=== PATIENT | female | born 1960 | race Caucasian/White ===

== ENCOUNTER 2017-12-03 17:36 | Observation (INO) | payer BC ==
[2017-12-03] MEDS: LIDOCAINE 1% MDV 20ML VIAL SC ×2 (19:30)
[2017-12-03] MEDS ORDERED: PERCOCET 5MG/325MG TAB PO ×2 (21:15)
[2017-12-03] MEDS ORDERED: KETOROLAC 30 MG/ML VIAL (J1885) IV ×2 (21:15)
[2017-12-03 21:26] LABS: BASO # 0.1 10^3/uL (0.0-0.2); BASO % 0.5 % (0.0-1.0); EOS # 0.2 10^3/uL (0.0-0.50); EOS % 1.4 % (0.0-3.0); HEMOGLOBIN 15.1 g/dl (12.0-16.0); IMMATURE GRANULOCYTE % 0.3 % (0-0); LYMPH # 2.7 10^3/uL (1.5-4.5); LYMPH % 21.4 % (24.0-44.0); MEAN CORPUSCULAR HGB CONC 32.8 g/dl (32.0-36.5); MEAN CORPUSCULAR VOLUME 94.5 fl (80.0-96.0); MONO # 0.6 10^3/uL (0.0-0.8); MONO % 4.7 % (0.0-5.0); NEUTROPHILS % 71.7 % (36.0-66.0); PLATELET COUNT, AUTOMATED 260 10^3/uL (150-450); RED BLOOD COUNT 4.87 10^6/uL (4.00-5.40); RED CELL DISTRIBUTION WIDTH 12.5 % (11.5-14.5); WHITE BLOOD COUNT 12.5 10^3/uL (4.0-10.0)
[2017-12-03 21:37] LABS: PROTHROMBIN TIME 12.2 SECONDS (12.4-14.5)
[2017-12-03 21:38] LABS: PARTIAL THROMBOPLASTIN TIME 29.3 SECONDS (26.8-37.9)
[2017-12-03 21:57] LABS: ALBUMIN 3.8 GM/DL (3.2-5.2); ALBUMIN/GLOBULIN RATIO 1.15 (1.00-1.93); ALKALINE PHOSPHATASE 135 U/L (45-117); ALT/SGPT 42 U/L (12-78); ANION GAP 6 MEQ/L (8-16); AST/SGOT 23 U/L (7-37); BILIRUBIN,TOTAL 0.4 MG/DL (0.2-1.0); BLOOD UREA NITROGEN 9 MG/DL (7-18); CALCIUM LEVEL 8.4 MG/DL (8.5-10.1); CARBON DIOXIDE LEVEL 29 MEQ/L (21-32); CHLORIDE LEVEL 108 MEQ/L (98-107); CPK CREATINE PHOSPHOKINASE 121 U/L (26-192); CREATININE FOR GFR 1.06 MG/DL (0.55-1.02); GLOMERULAR FILTRATION RATE 57.3 (>51); GLUCOSE, FASTING 92 MG/DL (70-105); MAGNESIUM LEVEL 2.1 MG/DL (1.8-2.4); MB/CK RELATIVE INDEX 0.82 (< OR =4); SODIUM LEVEL 143 MEQ/L (136-145); TOTAL PROTEIN 7.1 GM/DL (6.4-8.2); TROPONIN I < 0.02 NG/ML (< 0.10)
[2017-12-03] MEDS ORDERED: MORPHINE 2 MG/ML 1ML SYRINGE As Ordered ×2 (22:43)
[2017-12-03] MEDS ORDERED: ONDANSETRON 4MG/2ML VIAL (J2405) As Ordered ×2 (22:43)
[2017-12-03] MEDS ORDERED: KETOROLAC 30 MG/ML VIAL (J1885) As Ordered ×2 (22:43)
[2017-12-03] MEDS: MORPHINE 2 MG/ML 1ML SYRINGE IV ×2 (22:53)
[2017-12-03] MEDS: ONDANSETRON 4MG/2ML VIAL (J2405) IV ×2 (22:54)
[2017-12-04] MEDS: PERCOCET 5MG/325MG TAB PO ×6 (02:04→13:45)
[2017-12-04] MEDS ORDERED: fentaNYL 100 MCG/2 ML INJECTION (J3010) As Ordered ×6 (07:08→09:37)
[2017-12-04] MEDS ORDERED: MIDAZOLAM INJ 2 MG/2 ML VIAL (J2250) As Ordered ×4 (07:08→10:07)
[2017-12-04] MEDS ORDERED: dexameTHASONE 4 MG/ML 1ML VIAL (J1100) As Ordered ×4 (08:08→08:15)
[2017-12-04] MEDS: ceFAZolin 2 GM/D5W 50 ML IV BAG (J0690 PER 500MG) As Ordered ×2 (08:08)
[2017-12-04] MEDS: BUPIVACAINE HCL 0.25% 10 ML VIAL As Ordered ×2 (08:10)
[2017-12-04] MEDS: LIDOCAINE W/EPINEPHRINE 1% 20ML VIAL As Ordered ×2 (08:10)
[2017-12-04] MEDS ORDERED: PROPOFOL 200 MG/20 ML VIAL As Ordered ×2 (08:14)
[2017-12-04] MEDS ORDERED: ROCURONIUM BROMIDE 50 MG/5 ML VIAL As Ordered ×2 (08:14)
[2017-12-04] MEDS ORDERED: PHENYLephrine HCL 500 MCG/5 ML (100MCG/ML) SYRINGE (J2370) As Ordered ×2 (08:15)
[2017-12-04] MEDS ORDERED: ONDANSETRON 4MG/2ML VIAL (J2405) As Ordered ×4 (08:15→09:37)
[2017-12-04] MEDS ORDERED: LIDOCAINE 2% INJ 100 MG/5 ML SDV (FOR ANES.) As Ordered ×2 (08:15)
[2017-12-04] MEDS ORDERED: ePHEDrine SULFATE 25 MG/5 ML(5MG/ML) SYRINGE As Ordered ×2 (08:15)
[2017-12-04] MEDS ORDERED: GLYCOPYRROLATE INJ 0.2 MG/ML 2 ML VIAL As Ordered ×2 (08:57)
[2017-12-04] MEDS ORDERED: NEOSTIGMINE 10 MG/10 ML VIAL (J2710) As Ordered ×2 (08:57)
[2017-12-04] MEDS: INFLUENZA QUADRIVALENT PF VACCINE 0.5ML SYRINGE (90686) IM ×2 (09:00)
[2017-12-04] MEDS: ONDANSETRON 4MG/2ML VIAL (J2405) IV ×4 (09:35→16:52)
[2017-12-04] MEDS ORDERED: PERCOCET 5MG/325MG TAB As Ordered ×2 (09:37)
[2017-12-04] MEDS: fentaNYL 100 MCG/2 ML INJECTION (J3010) IV ×4 (09:42→10:15)
[2017-12-04] MEDS ORDERED: HYDROmorphone HCL 1 MG/ML SYRINGE (J1170) IV ×2 (10:00)
[2017-12-04] MEDS ORDERED: LR 1,000 ML IV ×2 (10:00)
[2017-12-04] MEDS ORDERED: PERCOCET 5MG/325MG TAB PO ×2 (10:15)
[2017-12-04] MEDS: MIDAZOLAM INJ 2 MG/2 ML VIAL (J2250) IV ×2 (10:15)
== END 2017-12-04 18:25 | disposition home or self-care (01) ==
LOC: M PED 12-04 01:40 → M ED INP 12-04 17:25 → M SDC 12-04 01:39 → M PED 12-04 17:13 → M ED INP 12-04 17:13 → M SDC 12-04 01:40 → M PED 12-04 17:25 → M ED 12-04 01:36 → M ED INP 17:37 → M PED 17:39 → M ED 17:36 → M SDC 20:45
DX: S82.842A Displaced bimalleolar fracture of left lower leg, initial encounter for closed fracture (principal); W00.0XXA Fall on same level due to ice and snow, initial encounter; Y92.098 Other place in other non-institutional residence as the place of occurrence of the external cause; J45.909 Unspecified asthma, uncomplicated; E78.5 Hyperlipidemia, unspecified; K21.9 Gastro-esophageal reflux disease without esophagitis; G43.909 Migraine, unspecified, not intractable, without status migrainosus; F32.9 Major depressive disorder, single episode, unspecified; F17.210 Nicotine dependence, cigarettes, uncomplicated; Z79.899 Other long term (current) drug therapy; Z91.040 Latex allergy status
CPT/HCPCS: 27814

== ENCOUNTER 2020-09-07 15:45 | Emergency (ER) | payer BC ==
[~2020-09-07] VITALS: Ht 165.1 cm; Wt 85.7 kg
[~2020-09-07 15:45] MED LIST: /FEXO18TA; ASPI-1 PO; ASPI81TA63; CALC600T10; DARV100T; FEXOFENADINE; FEXOFENADINE HCL; Glucosamine; OMEP40CA97 PO; PERC5TAB12 PO; PRIL40CA; SIMV20TA2; SING10TA31; THERGRAN; TRAZ100T; VENL1TAB35 PO; vitamin c
[2020-09-07 16:28] VITALS: BP 136/60
== END 2020-09-07 16:30 | disposition home or self-care (01) ==
LOC: M ED 15:45
DX: H43.391 Other vitreous opacities, right eye (principal); Z91.040 Latex allergy status

== ENCOUNTER 2020-11-10 20:18 | Inpatient (IN) | payer BC ==
[~2020-11-10] VITALS: Ht 165.1 cm; Wt 91.3 kg
[2020-11-10] MEDS ORDERED: PANTOPRAZOLE 40MG VIAL (C9113 PER 1) IV ONE (22:15)
[2020-11-10] MEDS ORDERED: ONDANSETRON 4MG/2ML VIAL IV ONE (22:15)
[2020-11-10] MEDS ORDERED: KETOROLAC 30 MG/ML 1ML VIAL IV ONE (22:15)
[2020-11-10 22:31] LABS: BASO % 0.3 % (0.0-1.0); EOS # 0.1 10^3/uL (0.0-0.5); EOS % 0.8 % (0.0-3.0); HEMOGLOBIN 15.9 g/dl (12.0-15.5); LYMPH # 1.9 10^3/uL (1.5-5.0); LYMPH % 14.7 % (24.0-44.0); MEAN CORPUSCULAR HEMOGLOBIN 31.1 pg (27.0-33.0); MEAN CORPUSCULAR HGB CONC 33.1 g/dl (32.0-36.5); MEAN CORPUSCULAR VOLUME 93.9 fl (80.0-96.0); MONO # 0.7 10^3/uL (0.0-0.8); MONO % 5.4 % (0.0-5.0); NEUTROPHILS # 10.2 10^3/uL (1.5-8.5); NEUTROPHILS % 78.5 % (36.0-66.0); PLATELET COUNT, AUTOMATED 240 10^3/uL (150-450); RED BLOOD COUNT 5.11 10^6/uL (4.00-5.40)
[2020-11-10] MEDS: NS 1,000 ML IV SCH (22:39)
[2020-11-10 22:56] LABS: INR 0.92; PROTHROMBIN TIME 12.6 SECONDS (12.5-14.3)
[2020-11-10 22:57] LABS: ALBUMIN 3.6 GM/DL (3.2-5.2); BILIRUBIN,DIRECT 0.1 MG/DL (0.0-0.2); BILIRUBIN,TOTAL 0.8 MG/DL (0.2-1.0); CALCIUM LEVEL 9.5 MG/DL (8.5-10.1); CREATININE FOR GFR 1.08 MG/DL (0.55-1.30); GLOMERULAR FILTRATION RATE 55.5 (>51); POTASSIUM SERUM 3.9 MEQ/L (3.5-5.1); TOTAL PROTEIN 7.1 GM/DL (6.4-8.2)
--- NOTE | 2020-11-10 23:32 | REPVR ---
PROCEDURE INFORMATION: Exam: CT Abdomen And Pelvis Without Contrast Exam date and time: 11/10/2020 10:51 PM Age: 60 years old Clinical indication: Abdominal pain; Generalized; Additional info: Pelvic pain TECHNIQUE: Imaging protocol: Computed tomography of the abdomen and pelvis without contrast. Radiation optimization: All CT scans at this facility use at least one of these dose optimization techniques: automated exposure control; mA and/or kV adjustment per patient size (includes targeted exams where dose is matched to clinical indication); or iterative reconstruction. COMPARISON: No relevant prior studies available. FINDINGS: Liver: Normal. No mass. Gallbladder and bile ducts: Previous cholecystectomy. Pancreas: Normal. No ductal dilation. Spleen: Calcified granuloma involving the spleen. Adrenal glands: Normal. No mass. Kidneys and ureters: Moderate left-sided hydroureteronephrosis secondary to 5 mm by 4 mm by 7 mm calculus at the proximal to mid left ureter. Stomach and bowel: Diverticulosis without diverticulitis. Appendix: Normal appendix. Intraperitoneal space: Unremarkable. No free air. No significant fluid collection. Vasculature: Mild vascular calcification. Lymph nodes: Unremarkable. No enlarged lymph nodes. Urinary bladder: Urinary bladder is decompressed. Reproductive: Previous hysterectomy. Bones/joints: There are degenerative changes involving the spine. Soft tissues: Unremarkable. IMPRESSION: Moderate left-sided hydroureteronephrosis secondary to 5 mm by 4 mm by 7 mm calculus at the proximal to mid left ureter. Electronically signed by: Pk Morales On 11/10/2020 23:32:01 PM
[2020-11-10] MEDS ORDERED: CIPROFLOXACIN 400 MG in IV 1 EA IV ONE (23:45)
--- NOTE | 2020-11-11 01:36 | HPEPDOC ---
[facility] Medical History & Physical Date of Admission Nov 11, 2020 Date of Service: Nov 11, 2020 Primary Care Physician: Lobo Bower MD Other Provider Dr. Almodovar, Urology service Attending Physician: THOMAS CHAUDHARI MD History and Physical CHIEF COMPLAINT: Lower abdominal pain HISTORY OF PRESENT ILLNESS: is a pleasant 60yo female with notable PMHx of asthma, HLD, and GERD - - not currently on any medications for any - - who presented to the ED on 11/10/20 with a chief complaint of intermittent severe suprapubic and lower abdominal pain. The pain arose around 11 PM, 3 days ago on this past Monday (11/07) after she worked a 12 hour shift. The pain was 10/10 and had her doubling over into the position, and at times radiated to her back. She had 4-5 episodes of nonbloody emesis on that overnight. From 11/07 into 11/08. She spent all day on Monday, 11/08 in bed and had another 2 episodes of nonbloody emesis. She did get some mild relief by taking Pepto-Bismol but when she woke up yesterday (Monday, 11/09) to prepare to head to work, the severe pain returned and she spent all of Monday in bed. The same sequence occurred this morning (11/10), where she had felt better after staying in bed all day and got up in preparation go to work, but again the sharp pain returned. Due to the pain, she has not had more than a few glasses of water and soup in the past 48 hours. She endorses accompanying chills, but denies any fever, night sweats, dysuria, hematuria, or flank pain. In the emergency department, she was found to have mildly leukocytosis (WBC 13) with increased hematocrit (48 with hemoglobin 15.9), an elevated alkaline ph osphatase at 126. Urinalysis was positive for leuk esterase only. *The most important finding was on abdomen/pelvis CT which showed "moderate left-sided hydroureteronephrosis secondary to a 5 mm x 4 mm x 7 mm calculus at the proximal to mid left ureter." The emergency department called the on-call urologist, Dr. Almodvoar, who was admitted where the case and will be seeing the patient on the morning of 11/11. In preparation for possible surgical intervention, patient was admitted under the care of the hospitalist service and made npo. PAST MEDICAL HISTORY: Asthma (not currently medication). Hyperlipidemia (not currently on medications). GERD (not currently on medications) Smoker Goiter for which she follows with her primary and has had multiple workups that it always been unremarkable PAST SURGICAL HISTORY: Tubal ligation, 1988 Cholecystectomy, 2007. Lab scopic vaginal total hysterectomy with bilateral salpingo-oophorectomy, 2007. Hardware plate implantation, left ankle status post fracture, November 2017 SOCIAL HISTORY: , lives with her and daughter in [place]. Works at [employer] in [place]. She is an active smoker, averaging one pack per day of cigarettes. She smokes cigarettes for 15 years, then quit and did not smoke for 6 years, and has sub sequently now been smoking for 8 years. So, she has smoked for 23 out of the last 29 years, averaging one pack per day. She drinks very infrequently on a social basis, averaging about 5-6 drinks per y ear. Denies any current or former extensive drug use. Did smoke some marijuana while a teenager. FAMILY HISTORY: Father: Living Mother: at the age of 49 due to metastatic cervical cancer She has 2 brothers and 2 sisters. One brother has type 2 diabetes She has 2 sons and 1 daughter. ALLERGIES: Please see below. REVIEW OF SYSTEMS: CONSTITUTIONAL: Reports chills.denies fever, night sweats, or recent unintentional change in weight EYES: Denies recent change in visual acuity, eye pain, blurred vision, double vision ENT: Denies rhinorrhea, ear pain, tinnitus, dysphagia, or odynophagia CARDIOVASCULAR: Denies chest pain, chest pressure, or palpitations RESPIRATORY: Reports chronic dry cough. Denies shortness of breath or pleuritic chest pain GASTROINTESTINAL: Reports lower abdominal and suprapubic pain as detailed in HPI that sometimes radiates to the back. Did have multiple episodes of emesis a couple days ago. Denies constipation, diarrhea, or blood in the stool GENITOURINARY: Reports chronic urinary urgency. Denies dysuria, hematuria, increased urinary frequency, urinary incontinence or flank pain NEUROLOGY: Denies recent loss of consciousness, dizziness, lightheadedness, gait instability, numbness or paresthesias in extremities HEMATOLOGIC: Denies any easy bleeding or bruising LYMPHATIC: Denies any new lumps or bumps anywhere HOME MEDICATIONS: Please see below. PHYSICAL EXAMINATION: VITAL SIGNS: Temperature 97.3, pulse, 98, respiratory rate 16, blood pressure 136/90, pulse oximetry 99% on room air. GENERAL: Pleasant female lying in bed. No acute distress. Alert and oriented 3. PERRLA. EOMI. HEENT: No cephalic, atraumatic. Noninjected, anicteric sclera. No conjunctival pallor. Moist mucous membranes with no pharyngeal erythema or exudate. NECK: Supple. Trachea midline. Palpated nodule in area of right lobe of thyroid. No cervical lymphadenopathy appreciated. RESPIRATORY: Cough elicited on exam at times. Mildly decreased tidal volume with no other adventitious breath sounds appreciated. Symmetric chest expansion. Breathing room air and speaking full senses. CARDIOVASCULAR: Regular rate, regular rhythm. Somewhat distant breath sounds. Normal S1, S2. No murmurs or rubs appreciated ABDOMEN: Soft, nondistended. Moderate tenderness of bilateral lower quadrants and suprapubic area. No CVA tenderness. Normoactive bowel sounds present. No rigidity appreciated. EXTREMITIES: Bilateral lower extremities are free of edema. No signs of clubbing or cyanosis. 2+ radial pulses bilaterally. NEUROLOGICAL: Awake, alert and oriented 3. No focal neurologic deficits appreciated. Non-dysarthric speech. PSYCHIATRIC: Mood and affect appear appropriate LABORATORY DATA: Please see below. IMAGING: CT abdomen/pelvis w/o contrast, 11/10/20 FINDINGS: Liver: Normal. No mass. Gallbladder and bile ducts: Previous cholecystectomy. Pancreas: Normal. No ductal dilation. Spleen: Calcified granuloma involving the spleen. Adrenal glands: Normal. No mass. Kidneys and ureters: Moderate left-sided hydroureteronephrosis secondary to 5 mm by 4 mm by 7 mm calculus at the proximal to mid left ureter. Stomach and bowel: Diverticulosis without diverticulitis. Appendix: Normal appendix. Intraperitoneal space: Unremarkable. No free air. No significant fluid collection. Vasculature: Mild vascular calcification. Lymph nodes: Unremarkable. No enlarged lymph nodes. Urinary bladder: Urinary bladder is decompressed. Reproductive: Previous hysterectomy. Bones/joints: There are degenerative changes involving the spine. Soft tissues: Unremarkable. IMPRESSION: Moderate left-sided hydroureteronephrosis secondary to 5 mm by 4 mm by 7 mm calculus at the proximal to mid left ureter. MICROBIOLOGY: Please see below. ASSESSMENT & PLAN: This is a 60yo female w/ notable h/o asthma, gerd, and hld - - not on any medications for any at this time, who presented to the ED on 11/10/2020 with the chief complaint of intermittent lower abdominal and suprapubic severe 10/10 pain for the last 2.5 days with occasional radiation to her back as well as 5-6 ep isodes of nonbloody emesis. Imaging in the ED showed moderate left-sided hydroureteronephrosis secondary to a stone in the proximal to mid left ureter. ED contacted the on-call urologist, Dr. Almodovar, who will be seeing the patient on 11/11 to assess for moving forward in terms of surgical intervention. #Moderate left-sided hydroureteronephrosis secondary to calculus at the proximal to mid left ureter -Calculus on imaging read as 5 mm x 4 mm x 7 mm -Clinically patient denied fever, hematuria, dysuria, flank pain; WBC was 13 -ED contacted Dr. Almodovar of urology service will be seeing the patient on 11/11 to assess for possible surgical intervention; consultation to the urology service placed, and we thank them for their collaborative efforts -Pt made npo in preparation for possible surgical intervention on 11/11 -Anticoagulation for DVT prophylaxis was deferred in the setting of possible s urgical intervention on 11/11; therefore, tetanus sequentials were ordered -IV fluids ordered -Patient is status post 1 dose of ciprofloxacin in the ED. Patient is afebrile with mild leukocytosis. No dysuria, no hematuria and an unremarkable UA -Analgesia in the form of morphine ordered -Tamsulosin ordered as well #Asthma -This is a reported history of asthma. Patient does not currently take any medications and does not follow with pulmonary or allergy #GERD -Patient is not on any medications for this and says that her reflux at this point is only occasional #Hyperlipidemia -Patient is not in any medications for this at this time and has not been seen by her PCP, any urinary. #Active smoker -Patient was offered nicotine patch while in the hospital and she declined -Patient did report that she is planning to quit upon discharge from this hospitalization #DVT prophylaxis: Teds and sequentials ordered; anticoagulation deferred in the setting of possible surgical intervention on 11/11. Disposition: Pending evaluation by urology service and possible surgical intervention. Vital Signs Vital Signs Date Time Temp Pulse Resp B/P (MAP) Pulse Ox O2 Delivery O2 Flow Rate FiO2 11/11/20 01:08 98.5 79 18 124/75 (91) 99 Room Air Laboratory Data Labs 24H Laboratory Tests 2 11/10/20 22:16: Immature Granulocyte % (Auto) 0.3, Neutrophils (%) (Auto) 78.5H, Lymphocytes (%) (Auto) 14.7L, Monocytes (%) (Auto) 5.4H, Eosinophils (%) (Auto) 0.8, Basophils (%) (Auto) 0.3, Neutrophils # (Auto) 10.2H, Lymphocytes # (Auto) 1.9, Monocytes # (Auto) 0.7, Eosinophils # (Auto) 0.1, Basophils # (Auto) 0.0, Nucleated Red Blood Cells % (auto) 0.0, Prothrombin Time 12.6, Prothromb Time International Ratio 0.92, Urine Color YELLOW, Urine Appearance HAZY, Urine pH 5.0, Urine Speci fic [place] 1.020, Urine Protein NEGATIVE, Urine Glucose (UA) NEGATIVE, Urine Ketones 1+H, Urine Blood 2+H, Urine Nitrite NEGATIVE, Urine Bilirubin NEGATIVE, Urine Urobilinogen 4.0H, Urine Leukocyte Esterase 1+H, Urine WBC (Auto) 23H, Urine RBC (Auto) 26H, Urine Hyaline Casts (Auto) 0, Urine Bacteria (Auto) NEGATIVE, Urine Squamous Epithelial Cells 0, Urine Calcium Oxalate Cryst (Auto) SMALL, Urine Mucus (Auto) SMALL, Urine Sperm (Auto) , Anion Gap 6L, Glomerular Filtration Rate 55.5, Calcium Level 9.5, Total Bilirubin 0.8, Direct Bilirubin 0.1, Aspartate Amino Transf (AST/SGOT) 17, Alanine Aminotransferase (ALT/SGPT) 27, Alkaline Phosphatase 126H, Total Protein 7.1, Albumin 3.6, Albumin/Globulin Ratio 1.0L, Lipase 116 11/11/20 00:51: CBC/BMP Laboratory Tests 11/10/20 22:16 Microbiology Microbiology 11/10/20 Urine Culture, Received Pending Home Medications Scheduled Cefdinir (Cefdinir) 300 Mg Capsule, 1 CAP PO BID Allergies Coded Allergies: latex (Verified Allergy, Unknown, 09/07/20) A-FIB/CHADSVASC A-FIB History Current/History of A-Fib/PAF?: No Current PO Anticoag Therapy: No GME ATTESTATION GME ATTESTATION My faculty preceptor for this patient encounter was physically present during the encounter and was fully available. All aspects of the patient interview, examination, medical decision making process, and medical care plan development were reviewed and approved by the faculty preceptor. The faculty preceptor is aware and concurs with the plan as stated in the body of this note and will attest to such by his/her cosignature. ATTENDING NOTE TIME OF SERVICE 405 AM Ms. Chowdhury is a 60 yr old w a hx of Asthma, DLP, insomnia, and no hx of nephrolithiasis who presented w c/o lower abdominal pain and was found to have left sided hydroureteronephrosis 2/2 urolithiasis. Plan: NPO/ IVF/ Flomax / morphine for pain / f/u w Rest per 's H&P NATALIE CEJA D.O. Nov 11, 2020 01:36 THOMAS CHAUDHARI MD Nov 11, 2020 04:42
[2020-11-11] MEDS ORDERED: NS 1,000 ML IV SCH (01:49)
[2020-11-11 01:55] LABS: RSV AMPLIFICATION NEGATIVE (NEGATIVE)
[2020-11-11 02:54] LABS: PARTIAL THROMBOPLASTIN TIME 29.2 SECONDS (24.2-38.5)
[2020-11-11] MEDS ORDERED: MORPHINE 2 MG/ML 1ML VIAL (J2270) IV PRN (04:45)
[2020-11-11 05:35] VITALS: BP 124/59
[2020-11-11] MEDS: TAMSULOSIN 0.4 MG CAP PO SCH (09:01)
[2020-11-11] MEDS: NS 1,000 ML IV SCH ×2 (09:01→09:08)
[2020-11-11] MEDS: cefTRIAXone SOD 1 GM in D5W MINI-BAG PLUS 50 ML IV SCH (09:01)
[2020-11-11 09:24] LABS: HEMATOCRIT 45.4 % (36.0-47.0); HEMOGLOBIN 14.7 g/dl (12.0-15.5); MEAN CORPUSCULAR HGB CONC 32.4 g/dl (32.0-36.5); MEAN CORPUSCULAR VOLUME 95.8 fl (80.0-96.0); PLATELET COUNT, AUTOMATED 227 10^3/uL (150-450); RED BLOOD COUNT 4.74 10^6/uL (4.00-5.40)
[2020-11-11 09:35] LABS: ALBUMIN 3.3 GM/DL (3.2-5.2); BILIRUBIN,TOTAL 0.9 MG/DL (0.2-1.0); CALCIUM LEVEL 8.9 MG/DL (8.5-10.1); CREATININE FOR GFR 1.16 MG/DL (0.55-1.30); GLOMERULAR FILTRATION RATE 51.1 (>51); POTASSIUM SERUM 3.8 MEQ/L (3.5-5.1); TOTAL PROTEIN 6.2 GM/DL (6.4-8.2)
--- NOTE | 2020-11-11 09:37 | SMCUROLCON ---
Urology Consultation General Date of Consultation 11/11/20 Reason For Consultation This patient is seen for Hydroureteronephrosis. History of Present Illness The patient is a 60-year-old female who presented to the [facility] emergency room for 4 day history of lower abdominal and left flank pain. While in the emergency room, she was diagnosed with a mid left ureteral calculus with mild hydronephrosis. She was admitted and urology consult was called. She denies any prior history of similar pain and has no past history of renal calculi. Past Medical History Medical History Asthma Hyperlipidemia GERD Goiter Surgical Hstory Tubal ligation Cholecystectomy Laparoscopic hysterectomy Plate inserted left ankle Social History * Smoker: current smoker Alcohol: occationally Medications Current Medications Current Medications Medications (Trade) Dose Ordered Sig/Elin Route PRN Reason Start Time Stop Time Status Last Admin Dose Admin Ceftriaxone Sodium 1 gm/ Dextrose 50 ml @ 100 mls/hr Q24H IV 11/11/20 09:00 11/11/20 09:01 Home Med (Med Rec Complete!) ASDIRECTED XX 11/11/20 00:30 11/11/20 00:30 DC Ketorolac Tromethamine (ToRADol) 15 mg Q6H PRN IV PAIN LEVEL 5-10 11/11/20 08:15 11/16/20 08:14 Morphine Sulfate (Morphine Sulfate Inj) 1 mg Q2H PRN IV MODERATE PAIN (PS 5-7) 11/11/20 04:45 11/11/20 08:08 DC 11/11/20 06:20 Morphine Sulfate (Morphine Sulfate Inj) 2 mg Q2H PRN IV PAIN LEVEL 8-10 11/11/20 08:15 Ondansetron HCl (ZOFRAN INJection) 4 mg Q6HP PRN IV NAUSEA OR VOMITING 11/11/20 08:15 Sodium Chloride 1,000 ml @ 100 mls/hr Q10H IV 11/10/20 22:04 11/11/20 09:08 Sodium Chloride 1,000 ml @ 125 mls/hr Q8H IV 11/11/20 01:49 11/11/20 02:02 DC Tamsulosin HCl (Flomax) 0.4 mg DAILY PO 11/11/20 09:00 11/11/20 09:01 Allergies Allergies: Coded Allergies: latex (Verified Allergy, Unknown, 09/07/20) Review of Systems General: Reports: Normal Appetite; Denies: Fatigue, Malaise Constitutional: Denies: Fever, Chills, Sweats, Weakness, Malaise Eyes: Denies: Pain, Vision change ENT: Denies: Head Aches, Sore Throat, Epistaxis Skin: Denies: Rash, Lesions, Breakdown, Nail Changes Pulmonary: Denies: Dyspnea, Cough Cardiovascular: Denies Chest Pain, Denies Palpitations Gastrointestinal: Denies: Nausea, Vomiting, Abdominal Pain Genitourinary: Denies: Dysuria, Frequency, Incontinence, Hematuria Hematologic: Denies: Bruising, Bleeding Excessively Endocrine: Denies: Polydipsia, Polyphagia, Polyuria Musculoskeletal: Denies: Neck Pain, Back Pain Neurological: Denies: Weakness, Numbness, Incoordination, Change in Speech Psych: Reports: Mood Normal; Denies: Anxiety, Depression Physical Examination General Exam: Alert, No Acute Distress EYE EXAM: PERRLA, Conjunctiva & lids normal, EOMI; No: Sclera icteric ENT EXAM: Atraumatic, Mucous membr. moist/pink, Pharynx Normal Neck Exam: Supple; No: JVD, thyromegaly Chest Exam: Clear to auscultation, Normal air movement; No: Rales, Rhonchi, Wheezing, Diminished, Other Heart Exam: Rate Normal, Regular Rhythm, Normal S1, Normal S2; No: Murmurs, Rubs Abdomen Exam: Normal Bowel Sounds, Soft; No: Tenderness, Hepatospenomegaly Neuro Exam: Normal Gait, Normal Speech, Cranial Nerves 3-12 NL, Reflexes 2+ Psych Exam: Mental status NL, Mood NL, Oriented x 3 Vital Signs/I&O Vital Signs Date Time Temp Pulse Resp B/P (MAP) Pulse Ox O2 Delivery O2 Flow Rate FiO2 11/11/20 06:49 18 11/11/20 05:35 98.9 85 124/59 (80) 97 Room Air I&O- Last 24 Hours up to 6 AM 11/11/20 06:00 Intake Total 800 ml Output Total 100 ml Balance 700 ml Laboratory Data 24H Labs Laboratory Tests 2 11/10/20 22:16: Immature Granulocyte % (Auto) 0.3, Neutrophils (%) (Auto) 78.5H, Lymphocytes (%) (Auto) 14.7L, Monocytes (%) (Auto) 5.4H, Eosinophils (%) (Auto) 0.8, Basophils (%) (Auto) 0.3, Neutrophils # (Auto) 10.2H, Lymphocytes # (Auto) 1.9, Monocytes # (Auto) 0.7, Eosinophils # (Auto) 0.1, Basophils # (Auto) 0.0, Nucleated Red Blood Cells % (auto) 0.0, Prothrombin Time 12.6, Prothromb Time International Ratio 0.92, Activated Partial Thromboplast Time 29.2, Urine Color YELLOW, Urine Appearance HAZY, Urine pH 5.0, Urine Specific [place] 1.020, Urine Protein NEGATIVE, Urine Glucose (UA) NEGATIVE, Urine Ketones 1+H, Urine Blood 2+H, Urine Nitrite NEGATIVE, Urine Bilirubin NEGATIVE, Urine Urobilinogen 4.0H, Urine Leukocyte Esterase 1+H, Urine WBC (Auto) 23H, Urine RBC (Auto) 26H, Urine Hy clyde Casts (Auto) 0, Urine Bacteria (Auto) NEGATIVE, Urine Squamous Epithelial Cells 0, Urine Calcium Oxalate Cryst (Auto) SMALL, Urine Mucus (Auto) SMALL, Urine Sperm (Auto) , Anion Gap 6L, Glomerular Filtration Rate 55.5, Calcium Level 9.5, Total Bilirubin 0.8, Direct Bilirubin 0.1, Aspartate Amino Transf (AST/SGOT) 17, Alanine Aminotransferase (ALT/SGPT) 27, Alkaline Phosphatase 126H, Total Protein 7.1, Albumin 3.6, Albumin/Globulin Ratio 1.0L, Lipase 116 11/11/20 00:51: Coronavirus (COVID-19)(PCR) NEGATIVE, Influenza Type A (RT-PCR) NEGATIVE, Influenza Type B (RT-PCR) NEGATIVE, Respiratory Syncytial Virus (PCR) NEGATIVE 11/11/20 08:59: Nucleated Red Blood Cells % (auto) 0.0 CBC/BMP Laboratory Tests 11/10/20 22:16 11/11/20 08:59 Microbiology Microbiology 11/10/20 Urine Culture, Received Pending Assessment After reviewing the CT scan and report the patient has a mid left ureteral calculus. Plan Treatment options for the left ureteral calculus were discussed including continued hydration and pain control for spontaneous passage, stent insertion, ESWL or ureteroscopic laser lithotripsy. Right now, the patient wishes to try and pass the stone. She'll be hydrated and reviewed again this evening to see if she would like a stent inserted Time Spent on Consult: Time Spent / Consult (Minutes): 55 KB GRIJALVA MD Nov 11, 2020 09:32
[2020-11-11] MEDS: ONDANSETRON 4MG/2ML VIAL IV PRN (11:20)
[2020-11-11] MEDS: MORPHINE 2 MG/ML 1ML VIAL (J2270) IV PRN ×3 (11:21→22:17)
--- NOTE | 2020-11-11 13:32 | IPNPDOC ---
Text Note Date of Service The patient was seen on 11/11/20. NOTE Subjective: Had initially low pelvic pain and then it moved to left lower ab domen. Now says pain is controlled after pain meds. Has not passed the stone yet. PHYSICAL EXAMINATION: VITAL SIGNS: As below GENERAL: Pleasant female lying in bed. No acute distress. Alert and oriented 3. HEENT: No cephalic, atraumatic. Noninjected, anicteric sclera. No conjunctival p allor. Moist mucous membranes with no pharyngeal erythema or exudate. NECK: Supple. Trachea midline. No cervical lymphadenopathy appreciated. RESPIRATORY: Bilateral vesicular breath sounds, no ronchi or wheezing. CARDIOVASCULAR: Regular rate, regular rhythm. Normal S1, S2. No murmurs or rubs appreciated ABDOMEN: Soft, nondistended. tenderness in the suprapubic area. No CVA tenderness. Normoactive bowel sounds present. No rigidity appreciated. EXTREMITIES: Bilateral lower extremities are free of edema. No signs of clubbing or cyanosis. 2+ radial pulses bilaterally. NEUROLOGICAL: Awake, alert and oriented 3. No focal neurologic deficits appreciated. Non-dysarthric speech. PSYCHIATRIC: Mood and affect appear appropriate LABORATORY DATA: Please see below. IMAGING: CT abdomen/pelvis w/o contrast, 11/10/20 Moderate left-sided hydroureteronephrosis secondary to 5 mm by 4 mm by 7 mm calculus at the proximal to mid left ureter. ASSESSMENT & PLAN: This is a 60yo female w/ notable h/o asthma, gerd, and hld - - not on any medications for any at this time, who presented to the ED on 11/10/2020 with the chief complaint of intermittent lower abdominal and suprapubic severe 10/10 pain for the last 2.5 days with occasional radiation to her back as well as 5-6 episodes of nonbloody emesis. Imaging in the ED showed moderate left-sided hydroureteronephrosis secondary to a stone in the proximal to mid left ureter. Obstructive uropathy /Left Ureteric stone with Moderate left-sided hydroureteronephrosis secondary to calculus at the proximal to mid left ureter Calculus on imaging read as 5 mm x 4 mm x 7 mm continue IVF, flomax, pain control with toradol, zofran prn. Urology following. UA with few WBCs may go for procedure so will give ceftriaxone. Urine culture sent. Asthma, HLD, GERD not on any meds VS,Fishbone, I+O VS, Fishbone, I+O Laboratory Tests 11/10/20 22:16 11/11/20 08:59 Vital Signs Date Time Temp Pulse Resp B/P (MAP) Pulse Ox O2 Delivery O2 Flow Rate FiO2 11/11/20 11:31 18 Room Air 11/11/20 05:35 98.9 85 124/59 (80) 97 I&O- Last 24 Hours up to 6 AM 11/11/20 06:00 Intake Total 800 ml Output Total 100 ml Balance 700 ml BRITNEY MONTANO MD Nov 11, 2020 13:32
[2020-11-11 14:00] VITALS: BP 132/72
[2020-11-11] MEDS: KETOROLAC 30 MG/ML 1ML VIAL IV PRN (17:31)
--- NOTE | 2020-11-11 18:49 | IPNPDOC ---
Subjective Review oF Systems Chief Complaint The patient is a 60-year-old female admitted with a reason for visit of Hydroureteronephrosis. Events since Last Encounter Patient continues to have occasional left flank pain requiring narcotic medications. She has not passed any stone fragments Constitutional: Denies: Fever, Chills, Sweats, Weakness, Malaise ENT: Denies: Head Aches, Sore Throat, Epistaxis Genitourinary: Denies: Dysuria, Frequency, Incontinence, Hematuria Musculoskeletal: Denies: Neck Pain, Back Pain Objective Physical Examination General Exam: Other Other physical findings Patient continues to have some left flank discomfort on palpation Chin. Vital Signs/I&O Vital Signs Date Time Temp Pulse Resp B/P (MAP) Pulse Ox O2 Delivery O2 Flow Rate FiO2 11/11/20 17:30 18 Room Air 11/11/20 14:00 98.7 95 132/72 (92) 96 I&O- Last 24 Hours up to 6 AM 11/11/20 06:00 Intake Total 800 ml Output Total 100 ml Balance 700 ml Laboratory Data Labs 24H Laboratory Tests 2 11/10/20 22:16: Immature Granulocyte % (Auto) 0.3, Neutrophils (%) (Auto) 78.5H, Lymphocytes (%) (Auto) 14.7L, Monocytes (%) (Auto) 5.4H, Eosinophils (%) (Auto) 0.8, Basophils (%) (Auto) 0.3, Neutrophils # (Auto) 10.2H, Lymphocytes # (Auto) 1.9, Monocytes # (Auto) 0.7, Eosinophils # (Auto) 0.1, Basophils # (Auto) 0.0, Nucleated Red Bl ood Cells % (auto) 0.0, Prothrombin Time 12.6, Prothromb Time International Ratio 0.92, Activated Partial Thromboplast Time 29.2, Urine Color YELLOW, Urine Appearance HAZY, Urine pH 5.0, Urine Specific [place] 1.020, Urine Protein NEGATIVE, Urine Glucose (UA) NEGATIVE, Urine Ketones 1+H, Urine Blood 2+H, Urine Nitrite NEGATIVE, Urine Bilirubin NEGATIVE, Urine Urobilinogen 4.0H, Urine Leukocyte Esterase 1+H, Urine WBC (Auto) 23H, Urine RBC (Auto) 26H, Urine Hyaline Casts (Auto) 0, Urine Bacteria (Auto) NEGATIVE, Urine Squamous Epithelial Cells 0, Urine Calcium Oxalate Cryst (Auto) SMALL, Urine Mucus (Auto) SMALL, Urine Sperm (Auto) , Anion Gap 6L, Glomerular Filtration Rate 55.5, Calcium Level 9.5, Total Bilirubin 0.8, Direct Bilirubin 0.1, Aspartate Amino Transf (AST/SGOT) 17, Alanine Aminotransferase (ALT/SGPT) 27, Alkaline Phosphatase 126H, Total Protein 7.1, Albumin 3.6, Albumin/Globulin Ratio 1.0L, Lipase 116 11/11/20 00:51: Coronavirus (COVID-19)(PCR) NEGATIVE, Influenza Type A (RT-PCR) NEGATIVE, Influenza Type B (RT-PCR) NEGATIVE, Respiratory Syncytial Virus (PCR) NEGATIVE 11/11/20 08:59: Nucleated Red Blood Cells % (auto) 0.0, Anion Gap 6L, Glomerular Filtration Rate 51.1, Calcium Level 8.9, Total Bilirubin 0.9, Aspartate Amino Transf (AST/SGOT) 16, Alanine Aminotransferase (ALT/SGPT) 25, Alkaline Phosphatase 114, Total Protein 6.2L, Albumin 3.3, Albumin/Globulin Ratio 1.1L CBC/BMP Laboratory Tests 11/10/20 22:16 11/11/20 08:59 Microbiology Microbiology 11/10/20 Urine Culture, Received Pending Assessment/Plan Date Seen The patient was seen on 11/11/20. Patient Summary Patient will continue to hydrate. Again, treatment options were discussed and she would like to have a ureteral stent placed tomorrow afternoon if she has not passed the stone by then. She will therefore be allowed to eat and drink this evening but again be placed back on nothing by mouth at midnight Plan/VTE VTE Prophylaxis Ordered?: No VTE Exclusion Mechanical Proph: Low Risk for VTE KB GRIJALVA MD Nov 11, 2020 18:45
[2020-11-11 22:00] VITALS: BP 111/52
[2020-11-12] MEDS: KETOROLAC 30 MG/ML 1ML VIAL IV PRN (01:42)
[2020-11-12] MEDS: MORPHINE 2 MG/ML 1ML VIAL (J2270) IV PRN (05:59)
[2020-11-12 06:00] VITALS: BP 141/77
[2020-11-12 07:08] LABS: BASO % 0.5 % (0.0-1.0); EOS # 0.2 10^3/uL (0.0-0.5); EOS % 3.3 % (0.0-3.0); HEMATOCRIT 39.5 % (36.0-47.0); HEMOGLOBIN 12.8 g/dl (12.0-15.5); LYMPH # 2.4 10^3/uL (1.5-5.0); LYMPH % 39.5 % (24.0-44.0); MEAN CORPUSCULAR HEMOGLOBIN 31.3 pg (27.0-33.0); MEAN CORPUSCULAR HGB CONC 32.4 g/dl (32.0-36.5); MEAN CORPUSCULAR VOLUME 96.6 fl (80.0-96.0); MONO # 0.5 10^3/uL (0.0-0.8); MONO % 8.9 % (0.0-5.0); NEUTROPHILS # 2.9 10^3/uL (1.5-8.5); NEUTROPHILS % 47.6 % (36.0-66.0); PLATELET COUNT, AUTOMATED 184 10^3/uL (150-450); RED BLOOD COUNT 4.09 10^6/uL (4.00-5.40)
[2020-11-12 07:26] LABS: BLOOD UREA NITROGEN 13 MG/DL (7-18); CALCIUM LEVEL 8.1 MG/DL (8.5-10.1); CARBON DIOXIDE LEVEL 25 MEQ/L (21-32); CHLORIDE LEVEL 111 MEQ/L (98-107); GLOMERULAR FILTRATION RATE > 60.0 (>51); GLUCOSE, FASTING 94 MG/DL (70-100); POTASSIUM SERUM 4.1 MEQ/L (3.5-5.1); SODIUM LEVEL 141 MEQ/L (136-145)
[2020-11-12] MEDS: ONDANSETRON 4MG/2ML VIAL IV PRN (08:53)
[2020-11-12] MEDS: cefTRIAXone SOD 1 GM in D5W MINI-BAG PLUS 50 ML IV SCH (08:53)
[2020-11-12] MEDS: TAMSULOSIN 0.4 MG CAP PO SCH (08:53)
[2020-11-12] MEDS ORDERED: CEFD300CAP PO (10:26)
[2020-11-12] MEDS ORDERED: CONRAY-60 60% 50ML VIAL (Q9961) As Ordered ONE (13:24)
[2020-11-12] MEDS ORDERED: MIDAZOLAM INJ 2MG/2ML VIAL (J2250 PER 1MG) As Ordered ONE (14:00)
[2020-11-12] MEDS ORDERED: fentaNYL 100 MCG/2 ML INJECTION (J3010) As Ordered ONE (14:00)
[2020-11-12] MEDS ORDERED: propofoL 200 MG/20 ML VIAL As Ordered ONE (14:00)
--- NOTE | 2020-11-12 14:29 | REP ---
INDICATION: KIDNEY STONE RETRIEVAL. COMPARISON: None. TECHNIQUE: Intraoperative fluoroscopic imaging FINDINGS: Single view demonstrates mild hydroureteronephrosis with possible filling defect in the proximal/mid ureter followed by relatively normal contour and caliber of the mid to distal ureter. Total fluoroscopic time 19 seconds. IMPRESSION: Status post left retrograde pyelogram demonstrating mild hydronephrosis and proximal hydroureter. <Electronically signed by Willi Morrow > 11/12/20 [id number]
--- NOTE | 2020-11-12 14:32 | ROOPDOC ---
[facility] Report Of Operation Report of Operation DATE OF PROCEDURE: 11/12/20 PREPROCEDURE DIAGNOSES: Left ureteral calculus POSTPROCEDURE DIAGNOSES: Left ureteral calculus PROCEDURE: Cystoscopy, left retrograde pyelogram and ureteral stent insertion SURGEON: Hector Almodovar MD [employer]IN[employer]NANCE MANAGER: None ANESTHESIA: Mac ESTIMATED BLOOD LOSS: Approximately 0 mL. COMPLICATIONS: None REMARKS: Ureteral stone remained in the mid ureter PROCEDURE NOTE: Patient was brought to the operating room for stent insertion for an obstructing midureteral calculus. She has failed to pass stone in more than 24 hours. DESCRIPTION OF PROCEDURE: The patient was placed on table in supine position, Mac anesthesia was given, patient was then placed in lithotomy position, prepped with Betadine paint and draped in an aseptic manner. Timeout was then performed. A 22 American cystoscope was then inserted with the meatus and advanced under direct vision of a 30 lens of the bladder. P appeared normal. The left ureteral orifice was then catheterized with a 5 American open-ended Pollack catheter and retrograde injection of 10 mL of Conray showed the patient had an obstructing midureteral calculus. A wire guide was then passed around the stone up to the renal pelvis and a 5 American double-J stent was then passed over this. Both ends curled well when the wire was removed. The bladder was drained, cystoscope was removed and the patient was awakened and sent to recovery room stable condition having tolerated the procedure well. She will have a ureteroscopic laser lithotripsy or as well procedure about 2 weeks. Fluoroscopy was used throughout the case and interpreted throughout the case to evaluate for stone position and to place the double-J stent. HECTOR ALMODOVAR MD Nov 12, 2020 14:31
[2020-11-12] MEDS ORDERED: LR 1,000 ML IV SCH ×2 (15:00→15:15)
[2020-11-12] MEDS ORDERED: HYDROMORPHONE HCL 0.5 MG/ 0.5 ML SYRINGE (J1170 PER 1) IV PRN (15:15)
[2020-11-12] MEDS ORDERED: ONDANSETRON 4MG/2ML VIAL IV PRN (15:15)
[2020-11-12] MEDS ORDERED: oxyCODONE 5MG TAB PO PRN (15:15)
[2020-11-12] MEDS ORDERED: fentaNYL 100 MCG/2 ML INJECTION (J3010) IV PRN (15:15)
[2020-11-12 15:33] VITALS: BP 166/77
[2020-11-12 16:00] VITALS: BP 158/74
[2020-11-12 16:30] VITALS: BP 157/76
[2020-11-12 17:38] VITALS: BP 161/77
[2020-11-12 18:00] VITALS: BP 160/69
--- NOTE | 2020-11-16 10:22 | DS.PDOC ---
Discharge Summary General Date of Admission Nov 11, 2020 at 00:08 Date of Discharge 11/12/20 Discharge Summary PROCEDURES PERFORMED DURING STAY: Cystoscopy, left retrograde pyelogram and ureteral stent insertion DISCHARGE DIAGNOSES: Left Ureteral stone Moderate left-sided hydroureteronephrosis SECONDARY DIAGNOSIS: Asthma, GERD, HLD COMPLICATIONS/CHIEF COMPLAINT: Hydroureteronephrosis. HOSPITAL COURSE: This is a 60yo female w/ notable h/o asthma, gerd, and hld - - not on any medications for any at this time, who presented to the ED on with the chief complaint of intermittent lower abdominal and suprapubic severe 10/10 pain for the last 2.5 days with occasional radiation to her back as well as 5-6 episodes of nonbloody emesis. Imaging in the ED showed moderate left-sided hydroureteronephrosis secondary to a stone in the proximal to mid left ureter. Obstructive uropathy /Left Ureteric stone with Moderate left-sided hydroureteronephrosis secondary to calculus at the proximal to mid left ureter Calculus on imaging read as 5 mm x 4 mm x 7 mm s/p ureteral stent placement She will need a ureteroscopic laser lithotripsy or as well procedure in about 2 weeks. Asthma, HLD, GERD not on any meds DISCHARGE MEDICATIONS: Please see below. ALLERGIES: Please see below. PHYSICAL EXAMINATION ON DISCHARGE: VITAL SIGNS: Please see below. GENERAL: Pleasant female lying in bed. No acute distress. Alert and oriented 3. HEENT: No cephalic, atraumatic. Noninjected, anicteric sclera. No conjunctival pallor. Moist mucous membranes with no pharyngeal erythema or exudate. NECK: Supple. Trachea midline. No cervical lymphadenopathy appreciated. RESPIRATORY: Bilateral vesicular breath sounds, no ronchi or wheezing. CARDIOVASCULAR: Regular rate, regular rhythm. Normal S1, S2. No murmurs or rubs appreciated ABDOMEN: Soft, nondistended. tenderness in the suprapubic area. No CVA tenderness. Normoactive bowel sounds present. No rigidity appreciated. EXTREMITIES: Bilateral lower extremities are free of edema. No signs of clubbing or cyanosis. 2+ radial pulses bilaterally. NEUROLOGICAL: Awake, alert and oriented 3. No focal neurologic deficits appreciated. Non-dysarthric speech. PSYCHIATRIC: Mood and affect appear appropriate LABORATORY DATA: Please see below. IMAGING: CT abdomen/pelvis w/o contrast, 11/10/20 Moderate left-sided hydroureteronephrosis secondary to 5 mm by 4 mm by 7 mm calculus at the proximal to mid left ureter. ACTIVITY: [As tolerated]. DIET: Regular DISPOSITION: 01 Home, Self-Care. DISCHARGE INSTRUCTIONS: Follow up Urology in 2 weeks PMD in 1 week DISCHARGE CONDITION: [Stable]. TIME SPENT ON DISCHARGE: 35 minutes. Vital Signs/I&Os Vital Signs Date Time Temp Pulse Resp B/P (MAP) Pulse Ox O2 Delivery O2 Flow Rate FiO2 11/12/20 18:00 97.7 59 18 160/69 (99) 99 Room Air Microbiology Microbiology 11/10/20 Urine Culture - Final, Complete Discharge Medications Scheduled Cefdinir (Cefdinir) 300 Mg Capsule, 1 CAP PO BID Allergies Coded Allergies: latex (Verified Allergy, Unknown, 09/07/20) BRITNEY MONTANO MD Nov 16, 2020 10:13
== END 2020-11-12 18:55 | disposition home or self-care (01) | DRG 465 ==
LOC: M ED 20:18 → M ED INP 11-11 00:08 → M MS5PR 11-11 05:30
PROVIDERS: ADMIT Internal Medicine; ATTEND Internal Medicine Nephrology
PROC: 0T778DZ Dilation of Left Ureter with Intraluminal Device, Via Natural or Artificial Opening Endoscopic (ICD-10-PCS; principal; 2020-11-12 12:00)
DX: N13.1 Hydronephrosis with ureteral stricture, not elsewhere classified (principal); E78.5 Hyperlipidemia, unspecified; J45.909 Unspecified asthma, uncomplicated; K21.9 Gastro-esophageal reflux disease without esophagitis; F17.210 Nicotine dependence, cigarettes, uncomplicated; Z90.49 Acquired absence of other specified parts of digestive tract; Z91.040 Latex allergy status; Z20.828 Contact with and (suspected) exposure to other viral communicable diseases

== ENCOUNTER → 2020-12-07 | Outpatient (CLI) | payer BC ==
[~2020-12-07] MED LIST changes: +CEFD300CAP PO
[2020-12-07 15:40] LABS: BASO % 0.4 % (0.0-1.0); EOS # 0.2 10^3/uL (0.0-0.5); EOS % 2.8 % (0.0-3.0); HEMATOCRIT 44.9 % (36.0-47.0); HEMOGLOBIN 14.4 g/dl (12.0-15.5); LYMPH # 2.1 10^3/uL (1.5-5.0); LYMPH % 28.8 % (24.0-44.0); MEAN CORPUSCULAR HEMOGLOBIN 31.5 pg (27.0-33.0); MEAN CORPUSCULAR HGB CONC 32.1 g/dl (32.0-36.5); MEAN CORPUSCULAR VOLUME 98.2 fl (80.0-96.0); MONO # 0.4 10^3/uL (0.0-0.8); MONO % 5.5 % (0.0-5.0); NEUTROPHILS # 4.6 10^3/uL (1.5-8.5); NEUTROPHILS % 62.1 % (36.0-66.0); PLATELET COUNT, AUTOMATED 262 10^3/uL (150-450); RED BLOOD COUNT 4.57 10^6/uL (4.00-5.40); WHITE BLOOD COUNT 7.4 10^3/uL (4.0-10.0)
[2020-12-07 16:02] LABS: CALCIUM LEVEL 9.2 MG/DL (8.5-10.1); CREATININE FOR GFR 1.03 MG/DL (0.55-1.30); GLOMERULAR FILTRATION RATE 58.6 (>51); POTASSIUM SERUM 3.7 MEQ/L (3.5-5.1)
--- NOTE | 2020-12-08 10:08 | REP ---
INDICATION: CALCULUS OF URETER, LABS 1ST THEN XR COMPARISON: CT dated 11/10/2020 TECHNIQUE: Supine view of the abdomen and pelvis. FINDINGS: Left ureteral stent in satisfactory position. Small cluster of calcifications adjacent to the proximal/mid stent at the L3-4 disc space level noted. No further obvious urinary tract calcifications are identified. Bowel gas pattern is nonspecific. Findings suggesting prior cholecystectomy. Skeletal structures demonstrate stable degenerative changes. IMPRESSION: Left ureteral calculi suspected. <Electronically signed by Willi Morrow > 12/08/20 [id number]
== END ==
LOC: M LAB 14:20
PROVIDERS: ATTEND Urology
DX: N20.1 Calculus of ureter (principal)

== ENCOUNTER → 2020-12-09 | Outpatient (CLI) | payer BC | LOC: M LABSMTC 12:05 | PROVIDERS: ATTEND Anesthesiology | DX: Z01.812 Encounter for preprocedural laboratory examination (principal); Z20.828 Contact with and (suspected) exposure to other viral communicable diseases ==

== ENCOUNTER → 2020-12-10 | Outpatient (REF) | payer BC | LOC: M SMT 13:25 | PROVIDERS: ATTEND Nurse Practitioner Family | DX: N20.1 Calculus of ureter (principal) ==

== ENCOUNTER 2020-12-14 09:49 | Day surgery (SDC) | payer BC ==
[~2020-12-14] VITALS: Ht 167.6 cm; Wt 83.9 kg
[~2020-12-14 09:49] MED LIST changes: +LIDOCAINE 2% 100MG/5ML SDV (FOR ANES.) As Ordered ONE; +LR 1,000 ML IV ONE; +MIDAZOLAM INJ 2MG/2ML VIAL (J2250 PER 1MG) As Ordered ONE; +ceFAZolin SOD 2 GM in IV 1 EA IV ONE; +fentaNYL 100 MCG/2 ML INJECTION (J3010) As Ordered ONE; +propofoL 200 MG/20 ML VIAL As Ordered ONE
[2020-12-14] MEDS ORDERED: CONRAY-60 60% 50ML VIAL (Q9961) As Ordered ONE (11:25)
[2020-12-14] MEDS ORDERED: ONDANSETRON 4MG/2ML VIAL As Ordered ONE (12:25)
[2020-12-14] MEDS ORDERED: KETOROLAC 60MG 2ML VIAL As Ordered ONE (12:25)
[2020-12-14] MEDS ORDERED: dexameTHASONE 4 MG/ML 1ML VIAL (J1100 PER 1MG) As Ordered ONE (12:25)
--- NOTE | 2020-12-14 12:59 | REP ---
INDICATION: LEFT STENT PLACEMENT. COMPARISON: None TECHNIQUE: Single spot view using a portable C-arm device in my absence FINDINGS: The proximal and midportion of the pigtail stent is seen in the left paraspinal location. 25 seconds of fluoroscopy time was provided for the procedure. IMPRESSION: As above <Electronically signed by Emeterio Paredes > 12/14/20 [id number]
[2020-12-14] MEDS ORDERED: oxyCODONE 5MG TAB As Ordered ONE (13:12)
--- NOTE | 2020-12-14 13:14 | ROOPDOC ---
[facility] Report Of Operation Report of Operation DATE OF PROCEDURE: 12/14/20 PREPROCEDURE DIAGNOSES: Left ureteral calculus with ureteral stricture POSTPROCEDURE DIAGNOSES: Left ureteral calculus with edema and ureteral stric ture PROCEDURE: Cystoscopy, laser lithotripsy ureteral calculus, stent insertion, retrograde pyelogram fluoroscopy and x-ray interpretation SURGEON: Ananya lopez MD METAPHYSICIST: None ANESTHESIA: Gen. ESTIMATED BLOOD LOSS: Approximately less than 5 mL. COMPLICATIONS: None REMARKS: Ureteral stricture and edema noted PROCEDURE NOTE: Patient was brought to the operating room for laser lithotripsy of a left ureteral calculus DESCRIPTION OF PROCEDURE: The patient was placed on the table in the supine position and given general anesthesia. She was then placed in lithotomy position, prepped and draped in the usual fashion and timeout was performed. A 21 Cameroonian cystoscope was then inserted into the meatus and advanced under direct vision of a 30 lens of the bladder where the ureteral stent was identified. It was grasped in grasping forceps and extracted to the urethral meatus where a wire guide was passed through the lumen up to the renal pelvis as guided by fluoroscopy. The stent was then removed leaving this safety wire in place. A semirigid ureteroscope was then introduced into the bladder and, with the aid of a working wire, was passed up to the stone. Patient was found to have a stricture just distal to the stone. Because of this and the position of the stone, the semirigid was removed and exchanged for a flexible cystoscope which was passed through an access sheath. The stone was then encountered and carefully treated with laser lithotripsy until it was successfully broken up into small fragments. Care was taken to not injure the urethral mucosa. These fragments were then retrieved with a basket. It was seen that the patient still had edematous tissue in this area and small stone fragments were attached to this tissue but could not be retrieved.. When no further retrievable stones could be identified, the scope was removed as was the tunnel under direct vision and a cystoscope was backloaded over the safety wire. A 6 Cameroonian double-J stent was then passed over this wire held in the renal pelvis. Bladder and also curled well when the wires removed. The patient was then awakened and sent to recovery room in stable condition havi ng tolerated procedure well. Fluoroscopy was used throughout the case and interpretation was performed during the fluoroscopy to access the stone and pass instruments and stents. Because of the amount of edema and stricture present, a 6 Cameroonian stent was left in place and this should be left in for 4 weeks before removal. A CT may also be performed to evaluate for any residual stone fragments. KB GRIJALVA MD Dec 14, 2020 13:14
[2020-12-14] MEDS ORDERED: LR 1,000 ML IV SCH ×2 (13:30)
[2020-12-14] MEDS ORDERED: oxyCODONE 5MG TAB PO PRN (13:30)
[2020-12-14] MEDS ORDERED: ONDANSETRON 4MG/2ML VIAL IV PRN (13:30)
[2020-12-14] MEDS ORDERED: fentaNYL 100 MCG/2 ML INJECTION (J3010) IV PRN (13:30)
[2020-12-14 14:35] VITALS: BP 143/67
[2020-12-14] MEDS ORDERED: IBUPROFEN 600MG TAB PO SCH (22:00)
[2020-12-19 15:07] LABS: CA Oxalate Dihy 50 % (.); Ca Ox Monohydrate 45 % (.); Size 4x7 mm (.)
== END 2020-12-14 14:50 | disposition home or self-care (01) ==
LOC: M SDC 09:49
PROVIDERS: ATTEND Urology
DX: N20.1 Calculus of ureter (principal); K21.9 Gastro-esophageal reflux disease without esophagitis; Z91.040 Latex allergy status; G43.909 Migraine, unspecified, not intractable, without status migrainosus; J45.909 Unspecified asthma, uncomplicated; F17.218 Nicotine dependence, cigarettes, with other nicotine-induced disorders; F12.10 Cannabis abuse, uncomplicated
CPT/HCPCS: 52356; 74420; 82365; 88300; C1769; C1894; C2617; J0690; J1100; J1885; J2250; J2405; J3010; Q9961

== ENCOUNTER → 2022-01-19 | Outpatient (CLI) | payer BC ==
[~2022-01-19] MED LIST changes: -LIDOCAINE 2% 100MG/5ML SDV (FOR ANES.) As Ordered ONE; -LR 1,000 ML IV ONE; -MIDAZOLAM INJ 2MG/2ML VIAL (J2250 PER 1MG) As Ordered ONE; +OMEP40CA4 PO; -OMEP40CA97 PO; -ceFAZolin SOD 2 GM in IV 1 EA IV ONE; -fentaNYL 100 MCG/2 ML INJECTION (J3010) As Ordered ONE; -propofoL 200 MG/20 ML VIAL As Ordered ONE
== END ==
LOC: M WHC 08:38
PROVIDERS: ATTEND Specialist
DX: Z12.31 Encounter for screening mammogram for malignant neoplasm of breast (principal)

== ENCOUNTER → 2022-11-22 | Outpatient (CLI) | payer OTHER | LOC: M WHC 16:05 | PROVIDERS: ATTEND Advanced Practice Midwife | DX: Z12.31 Encounter for screening mammogram for malignant neoplasm of breast (principal) ==

== ENCOUNTER → 2024-01-19 | Outpatient (CLI) | payer OTHER, BC ==
[2024-01-19 12:01] LABS: HEMATOCRIT 44.3 % (36.0-47.0); HEMOGLOBIN 14.5 g/dl (12.0-15.5); MEAN CORPUSCULAR HEMOGLOBIN 32.4 pg (27.0-33.0); MEAN CORPUSCULAR HGB CONC 32.7 g/dl (32.0-36.5); MEAN CORPUSCULAR VOLUME 99.1 fl (80.0-96.0); PLATELET COUNT, AUTOMATED 262 10^3/uL (150-450); RED BLOOD COUNT 4.47 10^6/uL (4.00-5.40); WHITE BLOOD COUNT 6.1 10^3/uL (4.0-10.0)
[2024-01-19 12:25] LABS: HEMOGLOBIN A1c 5.8 % (4.0-6.0)
[2024-01-19 12:35] LABS: THYROID STIMULATING HORMONE 2.801 uIU/ML (0.55-4.78)
[2024-01-19 12:36] LABS: ALBUMIN 3.5 G/DL (3.2-5.2); BILIRUBIN,TOTAL 0.7 MG/DL (0.3-1.2); CHOLESTEROL RISK RATIO 3.67 (<5); CREATININE FOR GFR 1.24 MG/DL (0.55-1.30); GLOMERULAR FILTRATION RATE 46.8 (>45); HDL CHOLESTEROL 66.7 MG/DL (>40); LDL CHOLESTEROL 158.3 MG/DL (<100); NON-HDL-C 178.3 MG/DL; POTASSIUM SERUM 4.9 MMOL/L (3.5-5.1); TOTAL PROTEIN 6.5 G/DL (5.7-8.2)
== END ==
LOC: M WUC 08:14
PROVIDERS: ATTEND Family Medicine
DX: Z13.29 Encounter for screening for other suspected endocrine disorder (principal); Z13.1 Encounter for screening for diabetes mellitus; I10 Essential (primary) hypertension

== ENCOUNTER → 2025-03-28 | Outpatient (REF) | payer OTHER | LOC: M SFHCPLAZ 11:45 | PROVIDERS: ATTEND Family Medicine | DX: J30.9 Allergic rhinitis, unspecified (principal); K21.9 Gastro-esophageal reflux disease without esophagitis; Z13.1 Encounter for screening for diabetes mellitus; E78.2 Mixed hyperlipidemia; I10 Essential (primary) hypertension; Z13.29 Encounter for screening for other suspected endocrine disorder ==

== ENCOUNTER → 2025-03-28 | Outpatient (CLI) | payer OTHER ==
[2025-03-28 13:40] LABS: BASO % 0.5 % (0.0-1.0); EOS # 0.2 10^3/uL (0.0-0.5); EOS % 2.2 % (0.0-3.0); HEMATOCRIT 44.6 % (36.0-47.0); LYMPH # 1.9 10^3/uL (1.5-5.0); LYMPH % 24.8 % (24.0-44.0); MEAN CORPUSCULAR HGB CONC 31.4 g/dl (32.0-36.5); MEAN CORPUSCULAR VOLUME 98.7 fl (80.0-96.0); MONO # 0.6 10^3/uL (0.0-0.8); MONO % 8.3 % (2.0-8.0); NEUTROPHILS # 4.9 10^3/uL (1.5-8.5); NEUTROPHILS % 64.1 % (36.0-66.0); PLATELET COUNT, AUTOMATED 282 10^3/uL (150-450); RED BLOOD COUNT 4.52 10^6/uL (4.00-5.40); WHITE BLOOD COUNT 7.7 10^3/uL (4.0-10.0)
[2025-03-28 14:24] LABS: THYROID STIMULATING HORMONE 2.341 uIU/ML (0.55-4.78)
[2025-03-28 14:28] LABS: HEMOGLOBIN A1c 6.6 % (4.0-6.0)
[2025-03-28 14:33] LABS: ALBUMIN 3.5 G/DL (3.2-5.2); BILIRUBIN,TOTAL 0.7 MG/DL (0.3-1.2); CALCIUM LEVEL 9.6 MG/DL (8.3-10.6); CHOLESTEROL RISK RATIO 3.79 (<5); CREATININE FOR GFR 1.45 MG/DL (0.55-1.30); GLOMERULAR FILTRATION RATE 40.8 (>45); HDL CHOLESTEROL 61.6 MG/DL (>40); LDL CHOLESTEROL 142.6 MG/DL (<100); NON-HDL-C 172.4 MG/DL; POTASSIUM SERUM 4.8 MMOL/L (3.5-5.1); TOTAL PROTEIN 7.1 G/DL (5.7-8.2)
== END ==
LOC: M PLALAB 11:49
PROVIDERS: ATTEND Family Medicine
DX: J30.9 Allergic rhinitis, unspecified (principal); K21.9 Gastro-esophageal reflux disease without esophagitis; E78.2 Mixed hyperlipidemia; I10 Essential (primary) hypertension; Z13.1 Encounter for screening for diabetes mellitus; Z13.29 Encounter for screening for other suspected endocrine disorder